=== PATIENT | male | born 2000 | race Two or more races ===

== ENCOUNTER 2024-12-04 10:04 | Outpatient (RCR) | payer MEDICAID, SELFPAY | END 2024-12-12 23:59 | disposition home or self-care (01) | LOC: CPTX 10:04 | PROVIDERS: PCP Nurse Practitioner Family; Referring Provider Nurse Practitioner Family; Visit Provider Nurse Practitioner Family | DX: Z53.8 Procedure and treatment not carried out for other reasons (principal) ==

== ENCOUNTER 2024-12-05 00:22 | Emergency (ER) | payer MEDICAID, SELFPAY ==
[2024-12-05 00:29] VITALS: BP 134/89; PULSE 100; RESP 18; TEMP 36.8; O2SAT 99
--- NOTE | 2024-12-05 00:41 | EDNOTE_ITS ---
ED General RME/HPI General Chief complaint: General Adult/Misc Complain Stated complaint: NOT FEELING WELL Time Seen by Provider: 12/05/24 00:25 Arrival date/time: 12/05/24 00:22 24 year old male present to emergency room with c/o of headache and nose pain for 2 days. pt report recently getting over sickness nose been dry and painful. SEVERITY: Symptoms are described as being severe with limitations on activities of daily living CONTEXT: The patient is unable to identify any inciting events. DURATION/TIMING: The symptoms started approximately 1 day ASSOCIATED SYMPTOMS: The patient is unable to identify any other associated symptoms. MODIFYING FACTORS: The patient is unable to identify any alleviating or aggravating symptoms. PERTINENT ROS: no fevers, no cough, no pleuritic pain, no ripping or tearing sensations, denies any lower extremity edema and no unilateral swelling, no chest pain/shortness of breath no nausea,vomiting, diarrhea, no dizziness/headache no rash no loc/syncope episode no abd/back pain no dsyuria,urgency,frequency REVIEW OF SYSTEMS: See History of Present Illness - with the exception of those mentioned in the history of present illness, all other systems reviewed and reported as negative GENERAL: In general the patient is awake, interactive, in an emergency [facility]. HEAD/EYES/EARS/NOSE/THROAT: + honey crust noted in bilateral nares. consisted with impetigo normo-cephalic, atraumatic, mucus membranes are moist, anicteric, palpebral conjunctiva is pink, trachea is midline. CARDIOVASCULAR: regular rate and regular rhythm, no murmurs, heart sounds are not distant, strong pulses in all four extremities that are equal and symmetric bilateral upper and lower extremities, normal capillary refill. NEUROLOGICAL: cranio-facial features are symmetric, moves all four extremities equally without obvious limitations or weakness. EXTREMITY: no tenderness to palpation over the long bones or large joints of the bilateral upper and lower extremities, no joint swelling, no joint erythema, no signs of trauma, no unilateral leg swelling and no peripheral edema. SKIN: warm, dry, well-perfused, no jaundice, no rash, no telangiectasias or petechia. PSYCH: calm, cooperative, no evidence of psychosis or agitation Related Data Previous Rx's ?Medication ?Instructions ?Recorded hydroxyzine HCl 50 mg tablet 50 mg PO TID PRN anxiety #30 tabs 02/20/22 lorazepam 1 mg tablet 1 mg PO QDAY PRN anxiety #7 tabs 02/24/22 albuterol sulfate 90 mcg/actuation 2 puff inhalation Q6H PRN 09/25/22 aerosol inhaler (Ventolin HFA) shortness of breath or wheezing #8.5 grams promethazine-DM 6.25 mg-15 mg/5 mL 5 ml PO Q6H PRN cough #473 mL 09/25/22 oral syrup dextromethorphan-guaifenesin 10 10 ml PO Q8H PRN cough #500 mL 05/22/23 mg-100 mg/5 mL oral liquid albuterol sulfate 90 mcg/actuation 2 puff inhalation Q6H PRN 10/05/23 aerosol inhaler (Ventolin HFA) shortness of breath or wheezing #8.5 grams benzonatate 100 mg capsule 100 mg PO TID #14 caps 10/05/23 ibuprofen 800 mg tablet (IBU) 800 mg PO Q8H #20 tabs 11/09/23 promethazine-DM 6.25 mg-15 mg/5 mL 5 ml PO Q6H PRN cough #200 mL 11/09/23 oral syrup mupirocin 2 % topical ointment 1 applic topical TID #15 grams 12/05/24 Allergies Allergy/AdvReac Type Severity Reaction Status Date / Time No Known Allergies Allergy Verified 12/05/24 00:25 Course Quality Measures none Orders Category Date Time Status Ketorolac Inj [Toradol Inj] Med 12/05/24 00:41 Discontinued 30 mg IM X1 ONE Vital Signs Vital signs: Vital Signs Temperature 98.3 F 12/05/24 00:29 Pulse Rate 100 12/05/24 00:29 Respiratory Rate 18 12/05/24 00:29 Blood Pressure 134/89 H 12/05/24 00:29 Pulse Oximetry (%) 99 12/05/24 00:29 Oxygen Delivery Method Room Air 12/05/24 00:29 [facility] Patient data External records reviewed:: None Clinical information provided by:: patient Social determinants that could affect healthcare access:: none Patient has the following chronic illnesses:: n/a How is presenting disease/condition affected by chronic disease/condition?: no chronic disease Evaluation data The following diagnostics were reviewed and interpreted by me:: other (specify) (none ) Lab and/or radiology exams considered but not ordered:: none Interpretation Summary: none n/a Medications Medications considered but not ordered:: none Medication administrations:: Medication Administration History Discontinued Medications Ketorolac Tromethamine (Ketorolac Inj 60 Mg/2 Ml Vial) 30 mg IM X1 ONE Stop: 12/05/24 00:42 none Consultations Consultation(s) initiated? (list below): No Diagnosis Differential Diagnosis ED Complaint MDM: impetigo Most likely diagnosis given after review of the tests above:: impetigo Admission Indicated Admission indicated?: not indicated Explain why admission is indicated or not indicated:: none Admission Request Was there a request for admission?: No Disposition Plan Disposition Plan: Discharge Discharge Attestation Discharge Attestation: The patient and all family members were given an opportunity to ask questions and understood the discharge instructions. Discharge instructions specifically effects, indications for sooner follow up or return to the emergency department, and the expected course of current diagnosis. Patient condition: Stable Medical Decision Making Differential Diagnosis Differential Diagnosis: impetigo Discharge Plan Plan Patient Disposition: HOME (Self Care) Prescriptions/Referrals Prescriptions/Med Rec: New mupirocin 2 % ointment 1 applic topical TID Qty: 15 0RF No Action hydroxyzine HCl 50 mg tablet 50 mg PO TID PRN (Reason: anxiety) Qty: 30 0RF lorazepam 1 mg tablet 1 mg PO QDAY PRN (Reason: anxiety) Qty: 7 0RF promethazine-DM 6.25-15 mg/5 mL syrup 5 ml PO Q6H PRN (Reason: cough) Qty: 473 0RF albuterol sulfate [Ventolin HFA] 90 mcg/actuation HFA aerosol inhaler 2 puff inhalation Q6H PRN (Reason: shortness of breath or wheezing) Qty: 8.5 0RF dextromethorphan-guaifenesin 10-100 mg/5 mL liquid 10 ml PO Q8H PRN (Reason: cough) Qty: 500 0RF albuterol sulfate [Ventolin HFA] 90 mcg/actuation HFA aerosol inhaler 2 puff inhalation Q6H PRN (Reason: shortness of breath or wheezing) Qty: 8.5 0RF benzonatate 100 mg capsule 100 mg PO TID Qty: 14 0RF promethazine-DM 6.25-15 mg/5 mL syrup 5 ml PO Q6H PRN (Reason: cough) Qty: 200 0RF ibuprofen [IBU] 800 mg tablet 800 mg PO Q8H Qty: 20 0RF Problem List Clinical Impression: Headache, Impetigo Patient/Caregiver Discharge Instructions Education Materials: Self-Care for Headaches, Understanding Impetigo Print Language: Kazakh Stand Alone Forms: Katie Award Info., Patient Portal Info Letter
[2024-12-05] MEDS: KETOROLAC INJ 60 MG/2 ML VIAL 30 MG IM (01:02)
== END 2024-12-05 01:03 | disposition home or self-care (01) ==
PROVIDERS: Emergency Provider Emergency Medicine; PCP Nurse Practitioner Family
DX: R51.9 Headache, unspecified (principal); L01.00 Impetigo, unspecified
CPT/HCPCS: 96372; 99283; J1885

== ENCOUNTER 2025-02-24 05:12 | Emergency (ER) | payer MEDICAID, SELFPAY ==
[2025-02-24 05:13] VITALS: BMI 24.5
[2025-02-24 05:26] VITALS: BP 116/77; PULSE 82; RESP 20; TEMP 36.7; O2SAT 98
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
== END 2025-02-24 07:51 | disposition home or self-care (01) ==
PROVIDERS: Emergency Provider Emergency Medicine; PCP Family Medicine
DX: S49.91XA Unspecified injury of right shoulder and upper arm, initial encounter (principal); S59.901A Unspecified injury of right elbow, initial encounter; S09.90XA Unspecified injury of head, initial encounter; Y04.0XXA Assault by unarmed brawl or fight, initial encounter
CPT/HCPCS: 70450; 73030; 73080; 99284

== ENCOUNTER 2025-04-15 07:34 | Emergency (ER) | payer MEDICAID, SELFPAY ==
[2025-04-15 08:02] VITALS: BP 122/78; PULSE 95; RESP 18; TEMP 37; O2SAT 97; BMI 22.3
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
[2025-04-15] MEDS: KETOROLAC INJ 60 MG/2 ML VIAL 30 MG IM (08:50)
[2025-04-15] MEDS: ACETAMINOPHEN 325 MG TABLET 650 MG PO (08:51)
== END 2025-04-15 09:00 | disposition home or self-care (01) ==
LOC: SERX 08:27
PROVIDERS: Emergency Provider Emergency Medicine
DX: S02.2XXA Fracture of nasal bones, initial encounter for closed fracture (principal); Y09 Assault by unspecified means; S00.81XA Abrasion of other part of head, initial encounter; S60.414A Abrasion of right ring finger, initial encounter
CPT/HCPCS: 96372; 99283; J1885; A9270

== ENCOUNTER 2025-05-26 07:46 | Emergency (ER) | payer MEDICAID, SELFPAY ==
[2025-05-26 07:47] VITALS: BMI 20.3
--- NOTE | 2025-05-26 07:51 | EKG_ITS ---
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
[2025-05-26 08:05] VITALS: BP 132/82; PULSE 72; RESP 18; TEMP 36.3; O2SAT 98; BMI 22.3
--- NOTE | 2025-05-26 08:11 | XR_ITS ---
Examination: PA lateral chest 2 views TECHNIQUE: Upright PA lateral chest 2 views Date and time: May 26, 2025 0822 hours Comparison October 05, 2023 INDICATIONS: Chest pain beginning 3 days ago. FINDINGS: Normal heart size. Lungs are clear. The osseous structures are intact. IMPRESSION: No active disease.
--- NOTE | 2025-05-26 08:11 | XR_ITS ---
Examination: CT abdomen and pelvis without contrast. Coronal 3-D reconstructions. Sagittal 2-D reconstructions. Date and time of exam:May 26, 2025 0832 hours Comparison February 28, 2018 INDICATIONS: Left lower abdomen pain left flank pain beginning 4 days ago CTDI: vol (mGy): 5.26 DLP: (mGycm): 284 Technique: Axial images of the abdomen have been obtained, 3 mm slice thickness Intravenous contrast material has not been administered. Low dose protocols were performed. One or more of the following dose reduction techniques were used; automated exposure control, adjustment of the mA and/or KV according to patient size, use of iterative reconstruction technique. Findings: No focal liver or splenic lesions No gallstones No pancreatic mass No renal or ureteral calculi, no hydronephrosis Aorta normal size No bowel obstruction Normal appendix No diverticulitis Urinary bladder intact Grade 1 spondylolisthesis L5 on S1 IMPRESSION: No renal or ureteral calculi, no hydronephrosis Normal appendix No bladder mass or bladder calculi
--- NOTE | 2025-05-26 08:12 | PD.EDRME ---
Rapid Medical Screening Exam RME Arrival date/time: 05/26/25 07:46 24-year-old male presents emergency department today for complaint of left flank pain and chest pain x 3 days Chief Complaint: Chest Pain Vital signs: Vital Signs Temperature 97.4 F 05/26/25 08:05 Pulse Rate 72 05/26/25 08:05 Respiratory Rate 18 05/26/25 08:05 Blood Pressure 132/82 H 05/26/25 08:05 Pulse Oximetry (%) 98 05/26/25 08:05 Oxygen Delivery Method Room Air 05/26/25 08:05
[2025-05-26 08:33] LABS: Basophils # (Auto) 0.0 Thou/mm3 (0.0-0.2); Basophils % (Auto) 1 % (0-2.5); Eosinophils # (Auto) 0.0 Thou/mm3 (0.0-0.5); Eosinophils % (Auto) 1 % (0-10); Hematocrit 40.2 % (41.0-53.0); Hemoglobin 14.2 g/dL (13.5-16.0); Immature Granulocytes Auto 0.00 Thou/mm3 (0.00-0.00); Lymphocytes # (Auto) 1.5 Thou/mm3 (1.0-4.8); Lymphocytes % (Auto) 42 % (10-50); Mean Corpuscular HGB Conc 35.3 g/dl (31.0-37.0); Mean Corpuscular Hemoglobin 31.9 pg (25.0-35.0); Mean Corpuscular Volume 90 fL (80-100); Monocytes # (Auto) 0.5 Thou/mm3 (0.0-0.8); Monocytes % (Auto) 13 % (0-12); Neutrophils # (Auto) 1.5 Thou/mm3 (1.8-7.7); Neutrophils % (Auto) 43 % (37-80); Nucleated Red Blood Cell # 0.00 Thou/mm3 (0.00-0.00); Nucleated Red Blood Cell % 0 /100 WBC (0); Platelet Count 241 Thou/mm3 (140-440); RDW Standard Deviation 40.9 fL (35.1-43.9); Red Blood Count 4.45 Miln/mm3 (4.50-5.90); White Blood Count 3.5 Thou/mm3 (3.8-10.6)
[2025-05-26 08:46] LABS: Alanine Aminotransferase 11 U/L (10-49); Albumin, Serum 4.3 gm/dL (3.5-5.0); Albumin/Globulin Ratio 1.6 (1.2-2.2); Alkaline Phosphatase 79 U/L (46-116); Anion Gap 6 (7-16); Aspartate Amino Transferase 16 U/L (0-34); BUN/Creatinine Ratio 10 Ratio (12-20); Bilirubin,Total 0.8 mg/dL (0.3-1.2); Blood Urea Nitrogen 8 mg/dL (9-23); Calcium 9.2 mg/dL (8.3-10.6); Calcium (Corrected) 9.2 mg/dL (8.5-10.1); Carbon Dioxide 28.7 mMol/L (20.0-31.0); Chloride 107 mMol/L (98-107); Creatinine (Component) 0.8 mg/dL (0.6-1.3); Estimated Creatinine Clearance 116.7 mL/min (>60); Globulin 2.7 gm/dL (2.3-3.5); Glucose 120 mg/dL (74-106); Lipase 23 U/L (12-53); Osmolality,Calculated 282 (275-295); Potassium 3.8 mMol/L (3.4-5.1); Sodium 142 mMol/L (136-145); Total Protein 7.0 gm/dL (5.7-8.2); Troponin I < 0.002 ng/mL (0.0-0.045); eGFR > 60 See Note
[2025-05-26 09:04] LABS: Collection Type, Urine Clean Catch; Squamous Epithelial Cell,Urine 0 /hpf (0-5)
[2025-05-26 09:28] LABS: Amphetamine/Methamp Scrn,U Negative (Negative); Barbiturate Screen,Urine Negative (Negative); Benzodiazepines Screen,Urine Negative (Negative); Benzoylecgonine Screen, Ur Negative (Negative); Fentanyl Screen,Urine Negative (Negative); Opiate Screen,Urine Negative (Negative); THC Screen,Urine Positive (Negative)
[2025-05-26 09:46] LABS: Bacteria,Urine Rare; Bilirubin,Urine Negative (Negative); Blood,Urine Negative (Negative); Clarity,Urine Clear (Clear/Hazy); Color,Urine Lt-Yellow (Lt Yel-Yel); Culture Indicated,Urine Not Indicated; Glucose, Urine Negative (Negative); Ketones,Urine Negative (Negative); Leukocyte Esterase,Urine Negative (Negative); Nitrite,Urine Negative (Negative); PH,Urine 6.0 (5.0-7.0); Protein,Urine Negative (Neg - Trace); RBC,Urine 1 /hpf (0-3); Specific Gravity,Urine 1.019 (1.001-1.035); Urobilinogen,Urine Negative mg/dL (0.0-1.0); WBC,Urine 1 /hpf (0-5)
[2025-05-26 10:08] VITALS: BP 127/76; PULSE 64; RESP 14; TEMP 36.4; O2SAT 99
[2025-05-26 10:13] VITALS: BP 151/91; PULSE 64; RESP 14; TEMP 36.7; O2SAT 95
--- NOTE | 2025-05-26 10:47 | PD.EDCHEST ---
ED Chest Pain RME/HPI General Chief Complaint: Chest Pain Stated Complaint: CHEST PAIN X 2 DAYS; L) FLANK PAIN X 5 DAYS Arrival date/time: 05/26/25 07:46 Limitations: no limitations RME / HPI RME / HPI narrative: 05/26/25 07:46 24-year-old male presents emergency department today for complaint of left flank pain and chest pain x [address] WYATT MAIN ED EVALUATION: 24 year old male with history of anxiety presents to the ED for evaluation of chest pain today. Described as sharp poking in sensation that is located most to the left side of chest without radiation, rating as moderate. Accompanied by feeling short of breath. No known modifying or aggravating factors. Additionally complains of left flank pain, described as aching in sensation, also beginning 3 days ago. During my evaluation at 10:45 AM, the patient is pain free. Denies fevers, chills, cough, shortness of breath, abdominal pain, n/v/d, or urinary symptoms. Related Data Previous Rx's ?Medication ?Instructions ?Recorded hydroxyzine HCl 50 mg tablet 50 mg PO TID PRN anxiety #30 tabs 02/20/22 lorazepam 1 mg tablet 1 mg PO QDAY PRN anxiety #7 tabs 02/24/22 albuterol sulfate 90 mcg/actuation 2 puff inhalation Q6H PRN 09/25/22 aerosol inhaler (Ventolin HFA) shortness of breath or wheezing #8.5 grams promethazine-DM 6.25 mg-15 mg/5 mL 5 ml PO Q6H PRN cough #473 mL 09/25/22 oral syrup dextromethorphan-guaifenesin 10 10 ml PO Q8H PRN cough #500 mL 05/22/23 mg-100 mg/5 mL oral liquid albuterol sulfate 90 mcg/actuation 2 puff inhalation Q6H PRN 10/05/23 aerosol inhaler (Ventolin HFA) shortness of breath or wheezing #8.5 grams benzonatate 100 mg capsule 100 mg PO TID #14 caps 10/05/23 ibuprofen 800 mg tablet (IBU) 800 mg PO Q8H #20 tabs 11/09/23 promethazine-DM 6.25 mg-15 mg/5 mL 5 ml PO Q6H PRN cough #200 mL 11/09/23 oral syrup mupirocin 2 % topical ointment 1 applic topical TID #15 grams 12/05/24 Allergies Allergy/AdvReac Type Severity Reaction Status Date / Time No Known Allergies Allergy Verified 05/26/25 07:49 Review of Systems Review of Systems Systems Reviewed: All systems reviewed, normal except as documented Past Medical History Past Medical History CARDIAC: Positive Cardiac Disorders and Cardiac Arrhythmia RESPIRATORY: Positive Asthma GASTROINTESTINAL: Positive Gastroesophageal Reflux Disease GENITOURINARY: Positive Benign Prostatic Hyperplasia ENT: Positive Cataracts PSYCHO/SOCIAL: Positive Psychiatric Problems, Schizophrenia, Recreational Drug Use, Bipolar Disorder, Depression and Anxiety OTHER HISTORY: Positive Chicken Pox, Measles and Mumps Family History FAMILY HISTORY: Positive Family Psychiatric Problems, Family Respiratory Disorders, Family Cardiac Disorders, Family Gastrointestinal Problems, Family Cancer, Family Surgery and Family Anesthesia Reaction Surgical History SURGICAL: Positive Angiogram Social History SMOKING STATUS: Never smoker SUBSTANCE USE: marijuana ED Exam General Limitations: Present no limitations General appearance: Present alert and in no apparent distress Head Head exam: Present atraumatic Eye Eye exam: Present normal appearance, PERRL and EOMI ENT ENT exam: Present normal exam, normal oropharynx and mucous membranes moist Neck Neck exam: Present normal inspection, full ROM and trachea midline Chest Chest inspection: Present normal inspection and symmetric chest wall rise Respiratory Respiratory exam: Present normal lung sounds bilaterally Cardiovascular Cardiovascular exam: Present regular rate, normal rhythm and normal heart sounds Abdominal Exam Abdominal exam: Present soft and normal bowel sounds Extremities Exam Extremities exam: Present normal inspection and full ROM Back Exam Back exam: Present normal inspection and full ROM Neurological Exam Neurological exam: Present alert, oriented X3 and CN II-XII intact Psychiatric Psychiatric exam: Present normal affect and normal mood Skin Skin exam: Present warm, dry, intact and normal color Course Quality Measures none Orders Category Date Time Status EKG (ED ONLY) *Do not use* NOW Care 05/26/25 07:[address] abdomen pelvis wo con Stat Exams 05/26/25 08:11 Completed EKG (ED Only) Stat Exams 05/26/25 07:51 Draft XR chest 2V Stat Exams 05/26/25 08:11 Completed CBC Stat Lab 05/26/25 08:24 Completed Comprehensive Metabolic Panel Stat Lab 05/26/25 08:24 Completed Drug Screen,Urine Stat Lab 05/26/25 08:40 Completed Lipase Stat Lab 05/26/25 08:24 Completed Troponin I Stat Lab 05/26/25 08:24 Completed UA, C/S IF [Urinalysis, C/S if Indicated] Stat Lab 05/26/25 08:40 Completed Vital Signs Vital signs: Vital Signs Temperature 97.4 F 05/26/25 08:05 Pulse Rate 72 05/26/25 08:05 Respiratory Rate 18 05/26/25 08:05 Blood Pressure 132/82 H 05/26/25 08:05 Pulse Oximetry (%) 98 05/26/25 08:05 Oxygen Delivery Method Room Air 05/26/25 08:05 Pulse ox is 98% on room air which is adequate. Chest Pain MDM Narrative MDM Narrative:: I, Tanvi Will, am scribing for and in the presence of Dr. Wyatt. Patient's troponin is not elevated. EKG is nonischemic. Chest x-ray is normal. Heart score is 0. I do not believe this patient have ischemic coronary artery disease. He was complaining of flank pain so a CT scan done of the abdomen pelvis was obtained that showed no evidence of kidney stone or hydronephrosis or acute disease process. Patient does have a history of anxiety. I believe the patient is stable for discharge to follow-up with his doctor for further treatment and evaluation. Patient data External records reviewed:: [facility] [place] previous records (I reviewed ED visit on 04/15/2025 for abrasion ) Clinical information provided by:: patient Social determinants that could affect healthcare access:: substance use (marijuana use ) Patient has the following chronic illnesses:: Anxiety How is presenting disease/condition affected by chronic disease/condition?: uneffected by Evaluation data The following diagnostics were reviewed and interpreted by me:: lab results, radiology exam(s) and EKG tracing(s) Lab and/or radiology exams considered but not ordered:: None Interpretation Summary: Ordering Physician: Lillie (BRIAN)Shawn NP Date of Service: 05/26/25 Procedure(s): CT abdomen pelvis wo con Accession Number(s): [id number] cc: Harry Mann; Lillie PEREZ)Shawn NP; Elan Montero MD~ Examination: CT abdomen and pelvis without contrast. Coronal 3-D reconstructions. Sagittal 2-D reconstructions. Date and time of exam:May 26, 2025 0832 hours Comparison February 28, 2018 INDICATIONS: Left lower abdomen pain left flank pain beginning 4 days ago CTDI: vol (mGy): 5.26 DLP: (mGycm): 284 Technique: Axial images of the abdomen have been obtained, 3 mm slice thickness Intravenous contrast material has not been administered. Low dose protocols were performed. One or more of the following dose reduction techniques were used; automated exposure control, adjustment of the mA and/or KV according to patient size, use of iterative reconstruction technique. Findings: No focal liver or splenic lesions No gallstones No pancreatic mass No renal or ureteral calculi, no hydronephrosis Aorta normal size No bowel obstruction Normal appendix No diverticulitis Urinary bladder intact Grade 1 spondylolisthesis L5 on S1 IMPRESSION: No renal or ureteral calculi, no hydronephrosis Normal appendix No bladder mass or bladder calculi Dictated By: Elan Montero MD Signed By: <Electronically signed by Elan Montero MD in OV> 05/26/25 1000 Ordering Physician: Lillie PEREZ)Shawn NP Date of Service: 05/26/25 Procedure(s): XR chest 2V Accession Number(s): [id number] cc: Harry MannP; Shawn Moreira NP, NP; Elan Montero MD~ Examination: PA lateral chest 2 views TECHNIQUE: Upright PA lateral chest 2 views Date and time: May 26, 2025 0822 hours Comparison October 05, 2023 INDICATIONS: Chest pain beginning 3 days ago. FINDINGS: Normal heart size. Lungs are clear. The osseous structures are intact. IMPRESSION: No active disease. Dictated By: Elan Montero MD Signed By: <Electronically signed by Elan Montero MD in OV> 05/26/25 0908 Medications / Prescriptions Medications or Prescriptions considered but not ordered:: None Medication administrations:: None Consultations Consultation(s) initiated? (list below): No Diagnosis Most likely diagnosis given after review of the tests above:: Chest pain Flank pain Admission Indicated Admission indicated?: not indicated Admission Request Was there a request for admission?: No Disposition Plan Disposition Plan: Discharge Discharge Attestation Discharge Attestation: The patient and all family members were given an opportunity to ask questions and understood the discharge instructions. Discharge instructions specifically effects, indications for sooner follow up or return to the emergency department, and the expected course of current diagnosis. Patient condition: Stable Discharge Plan Plan Patient Disposition: HOME (Self Care) Prescriptions/Referrals Prescriptions/Med Rec: No Action hydroxyzine HCl 50 mg tablet 50 mg PO TID PRN (Reason: anxiety) Qty: 30 0RF lorazepam 1 mg tablet 1 mg PO QDAY PRN (Reason: anxiety) Qty: 7 0RF promethazine-DM 6.25-15 mg/5 mL syrup 5 ml PO Q6H PRN (Reason: cough) Qty: 473 0RF albuterol sulfate [Ventolin HFA] 90 mcg/actuation HFA aerosol inhaler 2 puff inhalation Q6H PRN (Reason: shortness of breath or wheezing) Qty: 8.5 0RF dextromethorphan-guaifenesin 10-100 mg/5 mL liquid 10 ml PO Q8H PRN (Reason: cough) Qty: 500 0RF albuterol sulfate [Ventolin HFA] 90 mcg/actuation HFA aerosol inhaler 2 puff inhalation Q6H PRN (Reason: shortness of breath or wheezing) Qty: 8.5 0RF benzonatate 100 mg capsule 100 mg PO TID Qty: 14 0RF promethazine-DM 6.25-15 mg/5 mL syrup 5 ml PO Q6H PRN (Reason: cough) Qty: 200 0RF ibuprofen [IBU] 800 mg tablet 800 mg PO Q8H Qty: 20 0RF mupirocin 2 % ointment 1 applic topical TID Qty: 15 0RF Referrals: Harry Mann FNP [Primary Care Provider] - In 1 week Problem List Clinical Impression: Chest pain, Acute left flank pain Patient/Caregiver Discharge Instructions Additional Instructions: Return if chest pain becomes more intense frequent or last longer. May take Tylenol and/or ibuprofen as needed for your flank pain. Follow-up with your doctor for further treatment and evaluation. Print Language: Kosovan Stand Alone Forms: Katie Award Info., Patient Portal Info Letter
== END 2025-05-26 11:22 | disposition home or self-care (01) ==
PROVIDERS: Nurse Practitioner Primary Care; Emergency Provider Emergency Medicine
DX: R07.9 Chest pain, unspecified (principal); R10.9 Unspecified abdominal pain
CPT/HCPCS: 36415; 71046; 74176; 80053; 80307; 81001; 83690; 84484; 85025; 93005; 99284

== ENCOUNTER 2025-06-03 01:45 | Emergency (ER) | payer MEDICAID, SELFPAY ==
[2025-06-03 01:46] VITALS: BP 109/66; PULSE 112; RESP 18; TEMP 36.9; O2SAT 98; BMI 23.9
--- NOTE | 2025-06-03 01:50 | EKG_ITS ---
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
--- NOTE | 2025-06-03 02:17 | PC.NURSE ---
JO BISHOP CONTACTED AT THIS TIME AND WILL SEND OFFICER.
--- NOTE | 2025-06-03 03:29 | PC.NURSE ---
SEEN PT LEAVE ER.
== END 2025-06-03 03:31 | disposition left against medical advice (07) ==
LOC: SERX 03:37
PROVIDERS: Emergency Provider Emergency Medicine
DX: R00.0 Tachycardia, unspecified (principal); Z53.29 Procedure and treatment not carried out because of patient's decision for other reasons
CPT/HCPCS: 93005; 99283

== ENCOUNTER 2025-09-25 00:37 | Emergency (ER) | payer MEDICAID, SELFPAY ==
[2025-09-25 00:37] VITALS: BMI 24.5
[2025-09-25 01:00] VITALS: BP 117/69; PULSE 70; RESP 18; TEMP 37; O2SAT 97
--- NOTE | 2025-09-25 01:11 | XR_ITS ---
EXAMINATION: PA lateral chest 2 views TECHNIQUE: Upright PA lateral chest 2 views Date and time: September 25, 2025, 0138 hours, comparison May 26, 2025 INDICATIONS: Right-sided chest pain and coughing beginning 3 days ago. FINDINGS: Normal heart size Lungs are clear. Osseous structures are intact IMPRESSION: No active disease
--- NOTE | 2025-09-25 01:21 | PD.EDURI ---
Upper Respiratory Inf. RME/HPI General Chief Complaint: Flu Like Symptoms Stated Complaint: RIGHT SIDE RIB PAIN, COUGH Time Seen by Provider: 09/25/25 01:11 Arrival date/time: 09/25/25 00:37 24M with no significant PMH presents to ED with 1 week of wet productive cough and some R-sided rib pain when coughing. Patient was some ABX, possibly amoxicillin w/o improvement. Patient denies SOB. Limitations: no limitations Related Data Previous Rx's ?Medication ?Instructions ?Recorded hydroxyzine HCl 50 mg tablet 50 mg PO TID PRN anxiety #30 tabs 02/20/22 lorazepam 1 mg tablet 1 mg PO QDAY PRN anxiety #7 tabs 02/24/22 albuterol sulfate 90 mcg/actuation 2 puff inhalation Q6H PRN 09/25/22 aerosol inhaler (Ventolin HFA) shortness of breath or wheezing #8.5 grams promethazine-DM 6.25 mg-15 mg/5 mL 5 ml PO Q6H PRN cough #473 mL 09/25/22 oral syrup dextromethorphan-guaifenesin 10 10 ml PO Q8H PRN cough #500 mL 05/22/23 mg-100 mg/5 mL oral liquid albuterol sulfate 90 mcg/actuation 2 puff inhalation Q6H PRN 10/05/23 aerosol inhaler (Ventolin HFA) shortness of breath or wheezing #8.5 grams benzonatate 100 mg capsule 100 mg PO TID #14 caps 10/05/23 ibuprofen 800 mg tablet (IBU) 800 mg PO Q8H #20 tabs 11/09/23 promethazine-DM 6.25 mg-15 mg/5 mL 5 ml PO Q6H PRN cough #200 mL 11/09/23 oral syrup mupirocin 2 % topical ointment 1 applic topical TID #15 grams 12/05/24 amoxicillin 875 mg-potassium 1 tab PO TID 5 days #15 tabs 09/25/25 clavulanate 125 mg tablet azithromycin 250 mg tablet See Rx Instructions PO .COMPLEX #6 09/25/25 tabs Allergies Allergy/AdvReac Type Severity Reaction Status Date / Time No Known Allergies Allergy Verified 09/25/25 00:39 Review of Systems Review of Systems Systems Reviewed: All systems reviewed, normal except as documented Respiratory Respiratory: Reports as per HPI, Reports cough and Reports pain with cough Past Medical History Past Medical History NEUROLOGIC: Negative Neurological Disorders or Seizures CARDIAC: Positive Cardiac Disorders and Cardiac Arrhythmia; Negative Congestive Heart Failure RESPIRATORY: Positive Asthma; Negative Chronic Obstructive Pulmonary Disease (COPD) GASTROINTESTINAL: Positive Gastroesophageal Reflux Disease; Negative Gastrointestinal Disorders GENITOURINARY: Positive Benign Prostatic Hyperplasia; Negative Genitourinary Disorders or Renal Disease MUSCULOSKELETAL: Negative Musculoskeletal Disorders ENT: Positive Cataracts ENDOCRINE: Negative Endocrine Disorders, Diabetes Mellitus Type 1 or Diabetes Mellitus Type 2 HEMATOLOGIC: Negative Blood Disorders or Sickle Cell Disease PSYCHO/SOCIAL: Positive Psychiatric Problems, Schizophrenia, Recreational Drug Use, Bipolar Disorder, Depression and Anxiety OTHER HISTORY: Positive Chicken Pox, Measles and Mumps; Negative Autoimmune Disease, Blood Transfusions or Anesthesia Reactions Family History FAMILY HISTORY: Positive Family Psychiatric Problems, Family Respiratory Disorders, Family Cardiac Disorders, Family Gastrointestinal Problems, Family Cancer, Family Surgery and Family Anesthesia Reaction Surgical History SURGICAL: Positive Angiogram Social History SMOKING STATUS: Never smoker SUBSTANCE USE: marijuana ED Exam General Limitations: Present no limitations General appearance: Present alert and in no apparent distress Head Head exam: Present atraumatic Neck Neck exam: Present normal inspection, full ROM and trachea midline Chest Chest inspection: Present normal inspection and symmetric chest wall rise Respiratory Respiratory exam: Present prolonged expiratory phase (mild) Neurological Exam Neurological exam: Present alert and oriented X3 Psychiatric Psychiatric exam: Present normal affect and normal mood Skin Skin exam: Present warm, dry, intact and normal color Course Quality Measures none Orders Category Date Time Status XR chest 1V portable Stat Exams 09/25/25 01:11 Taken CBC Stat Lab 09/25/25 02:16 Completed CMP [Comprehensive Metabolic Panel] Stat Lab 09/25/25 02:16 Completed D-Dimer Stat Lab 09/25/25 02:16 Completed Troponin I Stat Lab 09/25/25 02:16 Completed Dexamethasone Inj [Decadron Inj] Med 09/25/25 01:22 Discontinued 10 mg PO X1 ONE Vital Signs Vital signs: Vital Signs Temperature 98.6 F 09/25/25 01:00 Pulse Rate 70 09/25/25 01:00 Respiratory Rate 18 09/25/25 01:00 Blood Pressure 117/69 09/25/25 01:00 Pulse Oximetry (%) 97 09/25/25 01:00 Oxygen Delivery Method Room Air 09/25/25 01:00 O2 at 97% on RA and WNLs Upper Respiratory Infection MDM Narrative MDM Narrative:: 24M with no significant PMH presents to ED with 1 week of wet productive cough and some R-sided rib pain when coughing. Patient was some ABX, possibly amoxicillin w/o improvement. Patient denies SOB. Physical exam reveals clear lungs and normal WOB. Some prolonged expiration. Some chest wall tenderness on R-side. Patient is afebrile, calm, and alert. Gait normal. Speech normal. Wet CXR read unremarkable pending official report. Minimal improvement with steroids. No leukocytosis. CMP unremarkable. Trop and D-dimer normal. Given duration of symptoms despite amoxicillin, will broaden to Augmentin with Z-natty for atypical coverage. R-sided rib pain possibly from coughing a lot vs costochondritis. Patient data External records reviewed:: [facility] previous records Clinical information provided by:: patient Social determinants that could affect healthcare access:: none Patient has the following chronic illnesses:: none How is presenting disease/condition affected by chronic disease/condition?: no chronic disease Evaluation data The following diagnostics were reviewed and interpreted by me:: radiology exam(s) Lab and/or radiology exams considered but not ordered:: ordered Interpretation Summary: above Medications / Prescriptions Medications or Prescriptions considered but not ordered:: ordered Medication administrations:: Medication Administration History Discontinued Medications Dexamethasone Sodium Phosphate (Dexamethasone Sod Phos Inj 10 Mg/Ml Vial) 10 mg PO X1 ONE Stop: 09/25/25 01:23 Last Admin: 09/25/25 01:28 Dose: 10 mg Documented By: GB above Consultations Consultation(s) initiated? (list below): No Diagnosis Upper Respiratory Differential Diagnosis: upper respiratory infection, croup, otitis media, sinusitis, viral infection, bronchitis, influenza, pharyngitis and other (CAP, respiratory infection and costochondritis) Most likely diagnosis given after review of the tests above:: respiratory infection and costochondritis Admission Indicated Admission indicated?: not indicated Admission Request Was there a request for admission?: No Disposition Plan Disposition Plan: Discharge Discharge Attestation Discharge Attestation: The patient and all family members were given an opportunity to ask questions and understood the discharge instructions. Discharge instructions specifically effects, indications for sooner follow up or return to the emergency department, and the expected course of current diagnosis. Patient condition: Stable Discharge Plan Plan Patient Disposition: HOME (Self Care) Discharge Disposition comment: Stable Prescriptions/Referrals Prescriptions/Med Rec: New amoxicillin-pot clavulanate 875-125 mg tablet 1 tab PO TID 5 Days Qty: 15 0RF azithromycin 250 mg tablet See Rx Instructions .ROUTE .COMPLEX Qty: 6 0RF Rx Instructions: For 250 mg dose pack: take 500 mg today (day 1), then 250 mg for 4 days (days 2-5) No Action hydroxyzine HCl 50 mg tablet 50 mg PO TID PRN (Reason: anxiety) Qty: 30 0RF lorazepam 1 mg tablet 1 mg PO QDAY PRN (Reason: anxiety) Qty: 7 0RF promethazine-DM 6.25-15 mg/5 mL syrup 5 ml PO Q6H PRN (Reason: cough) Qty: 473 0RF albuterol sulfate [Ventolin HFA] 90 mcg/actuation HFA aerosol inhaler 2 puff inhalation Q6H PRN (Reason: shortness of breath or wheezing) Qty: 8.5 0RF dextromethorphan-guaifenesin 10-100 mg/5 mL liquid 10 ml PO Q8H PRN (Reason: cough) Qty: 500 0RF albuterol sulfate [Ventolin HFA] 90 mcg/actuation HFA aerosol inhaler 2 puff inhalation Q6H PRN (Reason: shortness of breath or wheezing) Qty: 8.5 0RF benzonatate 100 mg capsule 100 mg PO TID Qty: 14 0RF promethazine-DM 6.25-15 mg/5 mL syrup 5 ml PO Q6H PRN (Reason: cough) Qty: 200 0RF ibuprofen [IBU] 800 mg tablet 800 mg PO Q8H Qty: 20 0RF mupirocin 2 % ointment 1 applic topical TID Qty: 15 0RF Referrals: Harry Mann FNP [Primary Care Provider] - In 1 week Problem List Clinical Impression: Acute costochondritis, Respiratory infection Patient/Caregiver Discharge Instructions Education Materials: ED Chest Wall Pain, Costochondritis, ED Pneumonia (Adult) Additional Instructions: Please follow-up with PCP within 24-48 hours and return immediately if symptoms worsen. Ibuprofen/Tylenol can be used simultaneously for greater fever/pain control. Benadryl is good for cough, congestion, and sleep. Print Language: French Stand Alone Forms: Patient Portal Info Letter LEDA/MANAGER APPLICATION DEVELOPMENT Supervising Physician PA/MANAGER APPLICATION DEVELOPMENT Supervising Physician: Dr. Bullock
[2025-09-25] MEDS: DEXAMETHASONE SOD PHOS INJ 10 MG/ML VIAL PO (01:28)
[2025-09-25 02:47] LABS: D-Dimer < 250 ng/mL (<600)
[2025-09-25 02:55] LABS: Alanine Aminotransferase 12 U/L (10-49); Albumin, Serum 4.7 gm/dL (3.5-5.0); Albumin/Globulin Ratio 2.0 (1.2-2.2); Alkaline Phosphatase 80 U/L (46-116); Anion Gap 8 (7-16); Aspartate Amino Transferase 17 U/L (0-34); BUN/Creatinine Ratio 18 Ratio (12-20); Bilirubin,Total 0.2 mg/dL (0.3-1.2); Blood Urea Nitrogen 16 mg/dL (9-23); Calcium 9.3 mg/dL (8.3-10.6); Calcium (Corrected) 9.3 mg/dL (8.5-10.1); Carbon Dioxide 30.1 mMol/L (20.0-31.0); Chloride 104 mMol/L (98-107); Creatinine (Component) 0.9 mg/dL (0.6-1.3); Estimated Creatinine Clearance 92.0 mL/min (>60); Globulin 2.3 gm/dL (2.3-3.5); Glucose 94 mg/dL (74-106); Osmolality,Calculated 284 (275-295); Potassium 3.8 mMol/L (3.4-5.1); Sodium 142 mMol/L (136-145); Total Protein 7.0 gm/dL (5.7-8.2); Troponin I < 0.002 ng/mL (0.0-0.045); eGFR > 60 See Note
[2025-09-25 02:56] LABS: Basophils # (Auto) 0.0 Thou/mm3 (0.0-0.2); Basophils % (Auto) 1 % (0-2.5); Eosinophils # (Auto) 0.1 Thou/mm3 (0.0-0.5); Eosinophils % (Auto) 2 % (0-10); Hematocrit 42.0 % (41.0-53.0); Hemoglobin 14.7 g/dL (13.5-16.0); Immature Granulocytes Auto 0.01 Thou/mm3 (0.00-0.00); Lymphocytes # (Auto) 2.6 Thou/mm3 (1.0-4.8); Lymphocytes % (Auto) 49 % (10-50); Mean Corpuscular HGB Conc 35.0 g/dl (31.0-37.0); Mean Corpuscular Hemoglobin 31.7 pg (25.0-35.0); Mean Corpuscular Volume 91 fL (80-100); Monocytes # (Auto) 0.7 Thou/mm3 (0.0-0.8); Monocytes % (Auto) 13 % (0-12); Neutrophils # (Auto) 1.8 Thou/mm3 (1.8-7.7); Neutrophils % (Auto) 35 % (37-80); Nucleated Red Blood Cell # 0.00 Thou/mm3 (0.00-0.00); Nucleated Red Blood Cell % 0 /100 WBC (0); Platelet Count 259 Thou/mm3 (140-440); RDW Standard Deviation 40.4 fL (35.1-43.9); Red Blood Count 4.64 Miln/mm3 (4.50-5.90); White Blood Count 5.2 Thou/mm3 (3.8-10.6)
[2025-09-25 03:18] VITALS: BP 120/75; PULSE 82; RESP 18; TEMP 36.7; O2SAT 97
== END 2025-09-25 03:31 | disposition home or self-care (01) ==
PROVIDERS: Physician Assistant; Emergency Provider Emergency Medicine
DX: J18.9 Pneumonia, unspecified organism (principal); M94.0 Chondrocostal junction syndrome [Tietze]
CPT/HCPCS: 36415; 71045; 80053; 84484; 85025; 85379; 99283; J1100

== ENCOUNTER 2025-10-07 22:55 | Emergency (ER) | payer MEDICAID, SELFPAY ==
[2025-10-07 22:56] VITALS: BP 137/85; PULSE 84; RESP 20; TEMP 36.8; O2SAT 97
[2025-10-07 22:57] VITALS: BMI 24.5
--- NOTE | 2025-10-07 23:18 | PD.EDHAND ---
Upper Extremity Injury RME/HPI General Chief Complaint: Hand/Wrist Problems Stated Complaint: LEFT THUMB INJURY Time Seen by Provider: 10/07/25 23:13 Arrival date/time: 10/07/25 22:55 24M with psych/drug use presents to ED with L thumb hangnail that's been there for almost a month. Patient wants it taken off. Limitations: no limitations Related Data Previous Rx's ?Medication ?Instructions ?Recorded hydroxyzine HCl 50 mg tablet 50 mg PO TID PRN anxiety #30 tabs 02/20/22 lorazepam 1 mg tablet 1 mg PO QDAY PRN anxiety #7 tabs 02/24/22 albuterol sulfate 90 mcg/actuation 2 puff inhalation Q6H PRN 09/25/22 aerosol inhaler (Ventolin HFA) shortness of breath or wheezing #8.5 grams promethazine-DM 6.25 mg-15 mg/5 mL 5 ml PO Q6H PRN cough #473 mL 09/25/22 oral syrup dextromethorphan-guaifenesin 10 10 ml PO Q8H PRN cough #500 mL 05/22/23 mg-100 mg/5 mL oral liquid albuterol sulfate 90 mcg/actuation 2 puff inhalation Q6H PRN 10/05/23 aerosol inhaler (Ventolin HFA) shortness of breath or wheezing #8.5 grams benzonatate 100 mg capsule 100 mg PO TID #14 caps 10/05/23 ibuprofen 800 mg tablet (IBU) 800 mg PO Q8H #20 tabs 11/09/23 promethazine-DM 6.25 mg-15 mg/5 mL 5 ml PO Q6H PRN cough #200 mL 11/09/23 oral syrup mupirocin 2 % topical ointment 1 applic topical TID #15 grams 12/05/24 azithromycin 250 mg tablet See Rx Instructions PO .COMPLEX #6 09/25/25 tabs Allergies Allergy/AdvReac Type Severity Reaction Status Date / Time No Known Allergies Allergy Verified 10/07/25 22:56 Review of Systems Review of Systems Systems Reviewed: All systems reviewed, normal except as documented Past Medical History Past Medical History NEUROLOGIC: Negative Neurological Disorders or Seizures CARDIAC: Positive Cardiac Disorders and Cardiac Arrhythmia; Negative Congestive Heart Failure RESPIRATORY: Positive Asthma; Negative Chronic Obstructive Pulmonary Disease (COPD) GASTROINTESTINAL: Positive Gastroesophageal Reflux Disease; Negative Gastrointestinal Disorders GENITOURINARY: Positive Benign Prostatic Hyperplasia; Negative Genitourinary Disorders or Renal Disease MUSCULOSKELETAL: Negative Musculoskeletal Disorders ENT: Positive Cataracts ENDOCRINE: Negative Endocrine Disorders, Diabetes Mellitus Type 1 or Diabetes Mellitus Type 2 HEMATOLOGIC: Negative Blood Disorders or Sickle Cell Disease PSYCHO/SOCIAL: Positive Psychiatric Problems, Schizophrenia, Recreational Drug Use, Bipolar Disorder, Depression and Anxiety OTHER HISTORY: Positive Chicken Pox, Measles and Mumps; Negative Autoimmune Disease, Blood Transfusions or Anesthesia Reactions Family History FAMILY HISTORY: Positive Family Psychiatric Problems, Family Respiratory Disorders, Family Cardiac Disorders, Family Gastrointestinal Problems, Family Cancer, Family Surgery and Family Anesthesia Reaction Surgical History SURGICAL: Positive Angiogram Social History SMOKING STATUS: Never smoker SUBSTANCE USE: marijuana ED Exam General Limitations: Present no limitations General appearance: Present alert and in no apparent distress Head Head exam: Present atraumatic Neck Neck exam: Present normal inspection, full ROM and trachea midline Chest Chest inspection: Present normal inspection and symmetric chest wall rise Extremities Exam Extremities exam: Present full ROM Expanded Upper Extremity Exam Hand exam: Present full ROM and nail avulsion (L thumb old) Neurological Exam Neurological exam: Present alert and oriented X3 Psychiatric Psychiatric exam: Present normal affect and normal mood Skin Skin exam: Present warm, dry, intact and normal color Course Quality Measures none Orders Category Date Time Status Wound Care NOW Care 10/07/25 23:14 Active Vital Signs Vital signs: Vital Signs Temperature 98.2 F 10/07/25 22:56 Pulse Rate 84 10/07/25 22:56 Respiratory Rate 20 10/07/25 22:56 Blood Pressure 137/85 H 10/07/25 22:56 Pulse Oximetry (%) 97 10/07/25 22:56 Oxygen Delivery Method Room Air 10/07/25 22:56 O2 at 97% on RA and WNLs Extremity Injury MDM Narrative MDM Narrative:: 24M with psych/drug use presents to ED with L thumb hangnail that's been there for almost a month. Patient wants it taken off. Physical exam reveals old hangnail on L thumb. New nail is growing under old nail. Patient is afebrile, alert, but anxious. Hangnail removed. Wound cleaned and bandaged. Supervisor Delivery Department given. Patient data External records reviewed:: [facility] previous records Clinical information provided by:: patient Social determinants that could affect healthcare access:: substance use Patient has the following chronic illnesses:: drug/psych How is presenting disease/condition affected by chronic disease/condition?: uneffected by Evaluation data The following diagnostics were reviewed and interpreted by me:: other (specify) (none) Lab and/or radiology exams considered but not ordered:: not ordered Interpretation Summary: n/a Medications / Prescriptions Medications or Prescriptions considered but not ordered:: not ordered Medication administrations:: n/a Consultations Consultation(s) initiated? (list below): No Diagnosis Upper Extremity Injury Differential Diagnosis: sprain and strain of wrist, fracture of wrist, finger sprain, dislocation of finger, Colles' fracture, fracture of hand and other (hangnail) Most likely diagnosis given after review of the tests above:: hangnail Admission Indicated Admission indicated?: not indicated Admission Request Was there a request for admission?: No Disposition Plan Disposition Plan: Discharge Discharge Attestation Discharge Attestation: The patient and all family members were given an opportunity to ask questions and understood the discharge instructions. Discharge instructions specifically effects, indications for sooner follow up or return to the emergency department, and the expected course of current diagnosis. Patient condition: Stable Discharge Plan Plan Patient Disposition: HOME (Self Care) Discharge Disposition comment: Stable Prescriptions/Referrals Prescriptions/Med Rec: No Action hydroxyzine HCl 50 mg tablet 50 mg PO TID PRN (Reason: anxiety) Qty: 30 0RF lorazepam 1 mg tablet 1 mg PO QDAY PRN (Reason: anxiety) Qty: 7 0RF promethazine-DM 6.25-15 mg/5 mL syrup 5 ml PO Q6H PRN (Reason: cough) Qty: 473 0RF albuterol sulfate [Ventolin HFA] 90 mcg/actuation HFA aerosol inhaler 2 puff inhalation Q6H PRN (Reason: shortness of breath or wheezing) Qty: 8.5 0RF dextromethorphan-guaifenesin 10-100 mg/5 mL liquid 10 ml PO Q8H PRN (Reason: cough) Qty: 500 0RF albuterol sulfate [Ventolin HFA] 90 mcg/actuation HFA aerosol inhaler 2 puff inhalation Q6H PRN (Reason: shortness of breath or wheezing) Qty: 8.5 0RF benzonatate 100 mg capsule 100 mg PO TID Qty: 14 0RF promethazine-DM 6.25-15 mg/5 mL syrup 5 ml PO Q6H PRN (Reason: cough) Qty: 200 0RF ibuprofen [IBU] 800 mg tablet 800 mg PO Q8H Qty: 20 0RF mupirocin 2 % ointment 1 applic topical TID Qty: 15 0RF azithromycin 250 mg tablet See Rx Instructions .ROUTE .COMPLEX Qty: 6 0RF Rx Instructions: For 250 mg dose pack: take 500 mg today (day 1), then 250 mg for 4 days (days 2-5) Problem List Clinical Impression: Hangnail Patient/Caregiver Discharge Instructions Education Materials: ED Detached Fingernail or Toenail Additional Instructions: Please follow-up with PCP within 24-48 hours and return immediately if symptoms worsen. Print Language: Croatian Stand Alone Forms: Patient Portal Info Letter LEDA/ALEX Supervising Physician LEDA/ALEX Supervising Physician: Dr. Bullock
== END 2025-10-08 00:15 | disposition home or self-care (01) ==
LOC: SERX 23:42
PROVIDERS: Emergency Provider Emergency Medicine
DX: S69.92XA Unspecified injury of left wrist, hand and finger(s), initial encounter (principal); L03.012 Cellulitis of left finger; X58.XXXA Exposure to other specified factors, initial encounter
CPT/HCPCS: 99281